=== PATIENT | male | born 1995 | race Caucasian/White ===

== ENCOUNTER 2019-03-26 14:51 | Emergency (ER) | payer SELFPAY ==
[~2019-03-26] VITALS: Ht 177.8 cm; Wt 81.0 kg
--- NOTE | 2019-03-26 16:00 | NUR ---
URINE COLLECTED/SENT TO LAB. PT UPDATED ON POC. CALL LIGHT WITHIN REACH, WARM BLANKET PROVIDED.
[2019-03-26 16:10] LABS: MICROSCOPIC NOT IND
[2019-03-26 16:28] LABS: ALANINE AMINOTRANSFERASE 43 U/L (12-78); ALBUMIN 3.9 g/dL (3.4-5.0); ANION GAP 7 mmol/L (5-15); CALCIUM 8.9 mg/dL (8.5-10.1); CHLORIDE 107 mmol/L (98-107); CREATININE 0.92 mg/dL (0.7-1.3)
[2019-03-26 16:30] LABS: ALKALINE PHOSPHATASE 86 U/L (45-117); BASOPHILS # (AUTO) 0.03 x10^3/uL (0-0.1); BASOPHILS % (AUTO) 0 % (0-1); BILIRUBIN,TOTAL 0.5 mg/dL (0.2-1.0); EOSINOPHILS # (AUTO) 0.25 x10^3/uL (0-0.4); EOSINOPHILS % (AUTO) 2 % (1-7); LYMPHOCYTES # (AUTO) 1.98 x10^3/uL (1-3.4); LYMPHOCYTES % (AUTO) 18 % (22-44); MD NO; MEAN CORPUSCULAR HEMOGLOBIN 33.1 pg (27.5-34.5); MEAN CORPUSCULAR HGB CONC 33.6 g/dL (33.2-36.2); MEAN CORPUSCULAR VOLUME 98.5 fL (81-97); MEAN PLATELET VOLUME 7.7 fL (7.4-10.4); MONOCYTES # (AUTO) 0.85 x10^3/uL (0.2-0.8); MONOCYTES % (AUTO) 8 % (2-9); NEUTROPHILS # (AUTO) 7.67 x10^3/uL (1.8-6.8); NEUTROPHILS % (AUTO) 71 % (42-75); PLATELET COUNT 278 x10^3/uL (130-400); RED BLOOD COUNT 5.12 x10^6/uL (4.38-5.82); RED CELL DISTRIBUTION WIDTH 12.9 % (9.4-14.8)
[2019-03-26 16:44] LABS: CULTURE INDICATED? NO
[2019-03-26 17:17] VITALS: BP 122/61
== END 2019-03-26 17:21 | disposition home or self-care (01) ==
LOC: ED 17:15
DX: R10.31 Right lower quadrant pain (principal); R10.32 Left lower quadrant pain
CPT/HCPCS: 36415; 80053; 81003; 85025; 99283

== ENCOUNTER 2020-03-10 10:04 | Emergency (ER) | payer OTHER ==
[~2020-03-10] VITALS: Ht 172.7 cm; Wt 95.4 kg
[2020-03-10 10:46] LABS: BASOPHILS % (AUTO) 1 % (0-1); EOSINOPHILS % (AUTO) 1 % (1-7); LYMPHOCYTES % (AUTO) 19 % (22-44); MEAN CORPUSCULAR HGB CONC 34.8 g/dL (33.2-36.2); MEAN PLATELET VOLUME 7.7 fL (7.4-10.4); MONOCYTES % (AUTO) 8 % (2-9); NEUTROPHILS % (AUTO) 72 % (42-75); PLATELET COUNT 311 x10^3/uL (130-400); RED BLOOD COUNT 5.26 x10^6/uL (4.38-5.82); RED CELL DISTRIBUTION WIDTH 13.8 % (9.4-14.8)
[2020-03-10 10:58] LABS: MD NO
[2020-03-10 11:14] LABS: ALANINE AMINOTRANSFERASE 173 U/L (12-78); ALKALINE PHOSPHATASE 108 U/L (45-117); ANION GAP 13 mmol/L (5-15); BILIRUBIN,TOTAL 0.7 mg/dL (0.2-1.0); CALCIUM 8.9 mg/dL (8.5-10.1); CHLORIDE 107 mmol/L (98-107); CREATININE 1.02 mg/dL (0.7-1.3); TOTAL PROTEIN 8.7 g/dL (6.4-8.2)
[2020-03-10 11:18] LABS: TROPONIN I < 0.015 ng/mL (0.000-0.045)
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
[2020-03-10] MEDS ORDERED: LORazepam 1MG TABLET ONE (12:15)
[2020-03-10] MEDS ORDERED: THIAMINE 100MG TABLET ONE (12:19)
--- NOTE | 2020-03-10 12:21 | NUR ---
PT SITTING QUIETLY ON GURNEY; NO OBVIOUS SIGNS OF DISTRESS. ATIVAN AND VIT B GIVEN PER EMAR.
[2020-03-10] MEDS ORDERED: LORazepam 1MG TABLET PO ONE (12:30)
[2020-03-10] MEDS ORDERED: THIAMINE 100MG TABLET PO ONE (12:30)
--- NOTE | 2020-03-10 13:15 | NUR ---
PT SITTING QUIETLY ON GURNEY, RESP EVEN & UNLABORED. REPORTS DECREASED ANXIETY.
[2020-03-10 13:21] VITALS: BP 125/80
== END 2020-03-10 13:29 | disposition home or self-care (01) ==
LOC: ED 11:14
DX: R07.89 Other chest pain (principal); Z20.828 Contact with and (suspected) exposure to other viral communicable diseases; F10.10 Alcohol abuse, uncomplicated; R00.0 Tachycardia, unspecified; F41.9 Anxiety disorder, unspecified; F17.290 Nicotine dependence, other tobacco product, uncomplicated; Y90.9 Presence of alcohol in blood, level not specified
CPT/HCPCS: 36415; 71045; 80053; 84484; 85025; 87635; 93005; 99285